=== PATIENT | male | born 1970 | race Two or more races ===

== ENCOUNTER 2017-11-30 08:11 | Emergency (ER) | payer MEDICAID ==
[~2017-11-30] VITALS: Ht 188 cm; Wt 86.2 kg
[2017-11-30 08:25] VITALS: BP 133/73
[2017-11-30] MEDS ORDERED: IBUPROFEN 800 MG TAB PO ONE (08:45)
== END 2017-11-30 08:56 | disposition home or self-care (01) ==
LOC: ER 08:12
DX: S46.911A Strain of unspecified muscle, fascia and tendon at shoulder and upper arm level, right arm, initial encounter (principal); W01.0XXA Fall on same level from slipping, tripping and stumbling without subsequent striking against object, initial encounter; Y93.89 Activity, other specified; Y92.091 Bathroom in other non-institutional residence as the place of occurrence of the external cause; Y99.8 Other external cause status
CPT/HCPCS: 73000

== ENCOUNTER 2018-09-29 09:04 | Emergency (ER) | payer MEDICAID ==
[~2018-09-29] VITALS: Ht 185.4 cm; Wt 95.7 kg
[2018-09-29 09:41] VITALS: BP 110/75
[2018-09-29] MEDS ORDERED: LIDOCAINE 1% HCL (LOCAL ANESTH.) INJ 20ML MDV IJ ONE (09:45)
== END 2018-09-29 10:23 | disposition home or self-care (01) ==
LOC: ER 09:07
DX: L02.811 Cutaneous abscess of head [any part, except face] (principal)
CPT/HCPCS: 10060; 87205; 99283; J2001

== ENCOUNTER 2018-10-02 08:49 | Emergency (ER) | payer MEDICAID ==
[~2018-10-02] VITALS: Ht 188 cm; Wt 131.5 kg
[2018-10-02 09:07] VITALS: BP 120/62
== END 2018-10-02 10:40 | disposition home or self-care (01) ==
LOC: ER 08:50
DX: L02.811 Cutaneous abscess of head [any part, except face] (principal); Z48.01 Encounter for change or removal of surgical wound dressing

== ENCOUNTER 2018-10-05 13:15 | Emergency (ER) | payer MEDICAID ==
[~2018-10-05] VITALS: Ht 188 cm; Wt 90.7 kg
[2018-10-05 13:27] VITALS: BP 102/65
== END 2018-10-05 14:30 | disposition home or self-care (01) ==
LOC: ER 13:15
DX: L02.811 Cutaneous abscess of head [any part, except face] (principal); Z48.01 Encounter for change or removal of surgical wound dressing

== ENCOUNTER 2018-10-29 14:23 | Emergency (ER) | payer MEDICAID ==
[2018-10-29] MEDS ORDERED: SODIUM CHLORIDE 0.9% 2,000 ML IV ONE (15:53)
[2018-10-29] MEDS ORDERED: cefTRIAXone 1GM/50ML D5W 50 ML IV ONE (16:15)
[2018-10-29 16:53] LABS: Albumin 3.8 g/dL (3.4-5.0)
[2018-10-29 16:55] LABS: BUN/Creatinine Ratio 17.8; Bilirubin, Total 0.3 mg/dL (0.2-1.0); Total Protein 7.9 g/dL (6.4-8.2)
[2018-10-29 17:02] LABS: INR 0.94 (0.9-1.15); Partial Thromboplastin Time 26.9 sec (23.64-32.05)
[2018-10-29 17:08] LABS: Basophils # (auto) 0.2 uL; Basophils % (auto) 2.1 % (0.0-2.0); Eosinophils # (auto) 0.3 uL; Eosinophils % (auto) 3.7 % (0.0-7.0); Hematocrit 49.8 % (41.0-53.0); Lymphocytes # (auto) 2.1 uL; Lymphocytes % (auto) 28.5 % (10.0-50.0); Mean Corpuscular Hemoglobin 29.2 pg (28.0-32.0); Mean Corpuscular Hgb Conc. 34.1 g/dL (32.0-36.0); Mean Corpuscular Volume 85.7 fL (80.0-100.0); Monocytes # (auto) 0.7 uL; Monocytes % (auto) 8.8 % (0.0-12.0); Neutrophils # (auto) 4.2 uL; Neutrophils % (auto) 56.9 % (37.0-80.0); Nucleated Red Blood Cells % 0.2 %; Platelet Count (auto) 267 10^3/uL (140-450); Red Cell Distribution Width 13.8 % (11.8-14.3); White Blood Cell 7.4 10^3/uL (4.4-10.8)
[2018-10-29] MEDS ORDERED: LORazepam 2MG/ML-1ML VIAL IV ONE (19:45)
[2018-10-29 23:33] VITALS: BP 124/68
== END 2018-10-30 | disposition short-term general hospital (02) ==
LOC: ER 14:25
DX: M86.8X4 Other osteomyelitis, hand (principal); R07.9 Chest pain, unspecified
CPT/HCPCS: 36415; 71046; 73140; 73200; 80053; 83605; 85025; 85610; 85730; 87040; 96361; 96365; 96366; 96375; 99285; J0696; J2060; J7030